=== PATIENT | male | born 1950 | race Caucasian/White ===

== ENCOUNTER 2024-01-31 16:58 | Inpatient (IN) | payer BC, MEDICARE ==
[2024-01-31 17:48] LABS: BASOPHILS ABSOLUTE AUTO 0.03 K/uL (0.00-0.10); BASOPHILS PERCENT AUTO 0.3 % (0.1-1.3); EOSINOPHILS ABSOLUTE AUTO 0.07 K/uL (0.00-0.40); EOSINOPHILS PERCENT AUTO 0.7 % (0.0-5.4); HEMATOCRIT 50.7 % (38.4-49.7); HEMOGLOBIN 17.8 g/dL (12.9-16.9); IMMATURE GRAN ABSOLUTE AUTO 0.05 K/uL (0.00-0.23); IMMATURE GRAN PERCENT AUTO 0.5 % (0.0-0.7); LYMPHOCYTES ABSOLUTE AUTO 1.05 K/uL (0.8-3.3); MEAN CORPUSCULAR HEMOGLOBIN 34.6 pg (31.6-35.5); MEAN CORPUSCULAR HGB CONC 35.1 g/dL (31.6-35.5); MEAN CORPUSCULAR VOLUME 98.4 fL (81.4-99.0); MONOCYTES ABSOLUTE AUTO 1.13 K/uL (0.20-0.90); MONOCYTES PERCENT AUTO 11.8 % (3.3-12.6); NEUTROPHILS ABSOLUTE AUTO 7.25 K/uL (1.0-7.6); NEUTROPHILS PERCENT AUTO 75.7 % (40.0-78.1); PLATELET COUNT,PLT 151 K/uL (130-375); RED BLOOD CELL COUNT 5.15 M/uL (4.14-5.76); WHITE BLOOD CELL COUNT,WBC 9.6 K/uL (3.2-11.0)
[2024-01-31 18:08] LABS: A/G RATIO 0.9 (1.2-2.2); ALANINE AMINOTRANSFERASE,ALT 12 U/L (12-78); ALBUMIN 3.6 g/dL (3.4-5.0); ALKALINE PHOSPHATASE 79 U/L (46-116); ASPARTATE AMNIOTRANSFERASE,AST 20 U/L (15-37); BILIRUBIN TOTAL 1.3 mg/dL (0.2-1.0); BLOOD UREA NITROGEN,BUN 14 mg/dL (7-18); CALCIUM 9.4 mg/dL (8.5-10.1); CARBON DIOXIDE,CO2 31 mmol/L (21-32); CHLORIDE,CL 99 mmol/L (100-108); CREATININE 0.8 mg/dL (0.8-1.3); EST CRCL DRUG DOSING (CG) 82.38 mL/min; ESTIMATED GFR 92 mL/min (>60); GLUCOSE RANDOM 132 mg/dL (74-106); POTASSIUM,K 4.4 mmol/L (3.6-5.2); PROTEIN TOTAL,TP 7.5 g/dL (6.4-8.2); SODIUM,NA 137 mmol/L (140-148)
[2024-01-31 18:10] LABS: ANION GAP 11.4 mmol/L (5.0-14.0)
[2024-01-31 18:13] LABS: INR 1.1; PROTHROMBIN TIME 10.9 sec (9.2-10.6); PTT,PARTIAL THROMBOPLSTIN TIME 26.5 sec (21.8-27.3)
[2024-01-31] MEDS: Digoxin 125 MCG Tab PO ONE (18:36)
[2024-01-31] MEDS: HYDROmorphone 1 MG/ML Syringe IVPUSH PRN ×2 (18:36→21:10)
[2024-01-31 18:38] LABS: CORONAVIRUS COVID-19 NAA NEGATIVE (NEGATIVE); INFLUENZA A NAA NEGATIVE (NEGATIVE); INFLUENZA B NAA NEGATIVE (NEGATIVE); RESPIRATORY SYNCYTIAL VIR NAA NEGATIVE (NEGATIVE)
[2024-01-31] MEDS: Heparin Sodium 5,000 Units/ML Vial IVPUSH ONE (18:58)
[2024-01-31] MEDS: Heparin Sodium/D5W 25,000 UNITS/500 ML BAG IV SCH (19:03)
[2024-01-31] MEDS ORDERED: Levalbuterol HCl 1.25 MG/3 ML Neb NEB PRN (19:22)
[2024-01-31] MEDS: Sodium Chloride 0.9% 500 ML IV SCH (19:41)
[2024-01-31] MEDS ORDERED: Sodium Chloride 0.9% 100 ML IV SCH (19:53)
[2024-01-31] MEDS ORDERED: Iopamidol 755 Mg/ML 100 ML Bottle IV ONE (19:53)
[2024-01-31 21:50] LABS: APPEARANCE,URINE CLEAR (CLEAR); BILIRUBIN,URINE NEGATIVE (NEGATIVE); COLOR,URINE YELLOW (YELLOW); GLUCOSE,URINE NEGATIVE (NEGATIVE); KETONES,URINE NEGATIVE (NEGATIVE); LEUKOCYTE ESTERASE,URINE NEGATIVE (NEGATIVE); NITRITE,URINE NEGATIVE (NEGATIVE); OCCULT BLOOD,URINE NEGATIVE (NEGATIVE); PROTEIN,URINE NEGATIVE (NEGATIVE)
[2024-01-31 21:52] LABS: AMORPHOUS SEDIMENT,URINE NOT SEEN; BACTERIA,URINE RARE; EPITHELIAL CELLS,URINE RARE; MUCUS,URINE RARE; RBC,URINE 0-5 (0-5); WBC,URINE 0-5 (0-5)
[2024-01-31] MEDS: Sodium Chloride 0.9% 1,000 ML IV SCH (22:34)
[2024-02-01 02:08] LABS: INR 1.1
[2024-02-01 02:30] LABS: PTT,PARTIAL THROMBOPLSTIN TIME 102.2 sec (21.8-27.3)
[2024-02-01] MEDS: Iopamidol 755 Mg/ML 100 ML Bottle IV SCH (08:50)
[2024-02-01] MEDS: Sodium Chloride 0.9% 100 ML IV SCH (08:50)
[2024-02-01] MEDS: HYDROmorphone 1 MG/ML Syringe IVPUSH PRN (09:24)
[2024-02-01] MEDS: Digoxin 125 MCG Tab PO SCH (12:25)
[2024-02-01] MEDS: Apixaban 5 MG Tab PO SCH (17:22)
[2024-02-01] MEDS: Sodium Chloride 0.9% 10 ML Syringe IVPUSH SCH (21:16)
== END 2024-02-02 09:47 | disposition home or self-care (01) | DRG 176 ==
LOC: JP.ICU 16:58
PROVIDERS: ADMIT Internal Medicine; ATTEND Internal Medicine
DX: I26.99 Other pulmonary embolism without acute cor pulmonale (principal); I10 Essential (primary) hypertension; G89.4 Chronic pain syndrome; I48.91 Unspecified atrial fibrillation; M54.50 Low back pain, unspecified; R09.02 Hypoxemia; R79.89 Other specified abnormal findings of blood chemistry; Z79.01 Long term (current) use of anticoagulants
CPT/HCPCS: 0241U; 36415; 71275; 76705; 80053; 81001; 82150; 83690; 84484; 85025; 85610; 85730; 93970; A9270-GY; J1170; J1644; J3490; J7030; Q9967

== ENCOUNTER 2025-02-04 01:55 | Inpatient (IN) | payer MEDICARE ==
[2025-02-04 02:16] LABS: BASOPHILS ABSOLUTE AUTO 0.07 K/uL (0.00-0.10); BASOPHILS PERCENT AUTO 0.6 % (0.1-1.3); EOSINOPHILS ABSOLUTE AUTO 0.04 K/uL (0.00-0.40); EOSINOPHILS PERCENT AUTO 0.4 % (0.0-5.4); IMMATURE GRAN ABSOLUTE AUTO 0.05 K/uL (0.00-0.23); IMMATURE GRAN PERCENT AUTO 0.5 % (0.0-0.7); LYMPHOCYTES ABSOLUTE AUTO 1.62 K/uL (0.8-3.3); LYMPHOCYTES PERCENT AUTO 14.8 % (11.4-47.7); MONOCYTES ABSOLUTE AUTO 1.49 K/uL (0.20-0.90); MONOCYTES PERCENT AUTO 13.6 % (3.3-12.6); NEUTROPHILS ABSOLUTE AUTO 7.69 K/uL (1.0-7.6); NEUTROPHILS PERCENT AUTO 70.1 % (40.0-78.1); PLATELET COUNT,PLT 232 K/uL (130-375); RED BLOOD CELL COUNT 5.82 M/uL (4.14-5.76); WHITE BLOOD CELL COUNT,WBC 11.0 K/uL (3.2-11.0)
[2025-02-04] MEDS: Nitroglycerin 0.4 MG Tab.SL SL PRN (02:20)
[2025-02-04] MEDS: Diltiazem 25 MG/5 ML SDV IVPUSH ONE (02:20)
[2025-02-04] MEDS: fentaNYL 100 MCG/2 ML SDV IVPUSH ONE (02:23)
[2025-02-04] MEDS: Sodium Chloride 0.9% 10 ML Syringe FLUSH PRN (02:24)
[2025-02-04 02:29] LABS: A/G RATIO 0.8 (1.2-2.2); ALANINE AMINOTRANSFERASE,ALT 20 U/L (12-78); ASPARTATE AMNIOTRANSFERASE,AST 31 U/L (15-37); BILIRUBIN TOTAL 1.1 mg/dL (0.2-1.0); BLOOD UREA NITROGEN,BUN 12 mg/dL (7-18); CARBON DIOXIDE,CO2 33 mmol/L (21-32); CHLORIDE,CL 95 mmol/L (100-108); CREATININE 0.7 mg/dL (0.8-1.3); EST CRCL DRUG DOSING (CG) 92.70 mL/min; ESTIMATED GFR 95 mL/min (>60); GLUCOSE RANDOM 137 mg/dL (74-106); POTASSIUM,K 4.8 mmol/L (3.6-5.2); PROTEIN TOTAL,TP 8.8 g/dL (6.4-8.2); SODIUM,NA 137 mmol/L (140-148)
[2025-02-04 02:30] LABS: TROPONIN I HIGH SENSITIVITY 179.2 pg/mL (<=60.3)
[2025-02-04] MEDS: Furosemide 40 MG/4 ML VIAL IVPUSH ONE (04:10)
[2025-02-04] MEDS: Diltiazem 100 MG in Sodium Chloride 0.9% 100 ML IV SCH (04:10)
[2025-02-04 12:51] LABS: BASOPHILS ABSOLUTE AUTO 0.03 K/uL (0.00-0.10); BASOPHILS PERCENT AUTO 0.3 % (0.1-1.3); EOSINOPHILS ABSOLUTE AUTO 0.05 K/uL (0.00-0.40); EOSINOPHILS PERCENT AUTO 0.6 % (0.0-5.4); IMMATURE GRAN ABSOLUTE AUTO 0.04 K/uL (0.00-0.23); IMMATURE GRAN PERCENT AUTO 0.5 % (0.0-0.7); LYMPHOCYTES ABSOLUTE AUTO 0.97 K/uL (0.8-3.3); LYMPHOCYTES PERCENT AUTO 11.1 % (11.4-47.7); MONOCYTES ABSOLUTE AUTO 0.90 K/uL (0.20-0.90); MONOCYTES PERCENT AUTO 10.3 % (3.3-12.6); NEUTROPHILS ABSOLUTE AUTO 6.78 K/uL (1.0-7.6); NEUTROPHILS PERCENT AUTO 77.2 % (40.0-78.1); PLATELET COUNT,PLT 206 K/uL (130-375); RED BLOOD CELL COUNT 5.06 M/uL (4.14-5.76); WHITE BLOOD CELL COUNT,WBC 8.8 K/uL (3.2-11.0)
[2025-02-04] MEDS: Furosemide 20 MG/2 ML VIAL IVPUSH ONE (13:14)
[2025-02-04] MEDS: fentaNYL 50 MCG/ML SDV IVPUSH PRN (13:36)
[2025-02-04] MEDS: Budesonide 0.5 MG/2 ML Neb Susp NEB SCH (14:02)
[2025-02-04] MEDS ORDERED: Dental Adhesive 1 Tube DENT ONE (21:05)
[2025-02-05 05:32] LABS: BASOPHILS ABSOLUTE AUTO 0.05 K/uL (0.00-0.10); BASOPHILS PERCENT AUTO 0.6 % (0.1-1.3); EOSINOPHILS ABSOLUTE AUTO 0.06 K/uL (0.00-0.40); EOSINOPHILS PERCENT AUTO 0.7 % (0.0-5.4); IMMATURE GRAN PERCENT AUTO 0.2 % (0.0-0.7); LYMPHOCYTES ABSOLUTE AUTO 1.12 K/uL (0.8-3.3); LYMPHOCYTES PERCENT AUTO 14.0 % (11.4-47.7); MONOCYTES ABSOLUTE AUTO 1.05 K/uL (0.20-0.90); MONOCYTES PERCENT AUTO 13.1 % (3.3-12.6); NEUTROPHILS ABSOLUTE AUTO 5.71 K/uL (1.0-7.6); NEUTROPHILS PERCENT AUTO 71.4 % (40.0-78.1); PLATELET COUNT,PLT 196 K/uL (130-375); RED BLOOD CELL COUNT 4.69 M/uL (4.14-5.76); WHITE BLOOD CELL COUNT,WBC 8.0 K/uL (3.2-11.0)
[2025-02-05 05:37] LABS: IMMATURE GRAN ABSOLUTE AUTO 0.02 K/uL (0.00-0.23)
[2025-02-05 05:52] LABS: A/G RATIO 0.8 (1.2-2.2); ALANINE AMINOTRANSFERASE,ALT 14 U/L (12-78); ASPARTATE AMNIOTRANSFERASE,AST 20 U/L (15-37); BILIRUBIN TOTAL 0.7 mg/dL (0.2-1.0); BLOOD UREA NITROGEN,BUN 8 mg/dL (7-18); CARBON DIOXIDE,CO2 42 mmol/L (21-32); CHLORIDE,CL 99 mmol/L (100-108); CREATININE 0.5 mg/dL (0.8-1.3); EST CRCL DRUG DOSING (CG) 129.78 mL/min; ESTIMATED GFR 106 mL/min (>60); GLUCOSE RANDOM 147 mg/dL (74-106); POTASSIUM,K 3.9 mmol/L (3.6-5.2); PROTEIN TOTAL,TP 6.4 g/dL (6.4-8.2); SODIUM,NA 142 mmol/L (140-148)
[2025-02-05] MEDS: Acetaminophen/oxyCODONE 325-10 MG Tab PO PRN (10:48)
[2025-02-05] MEDS: fentaNYL 50 MCG/ML SDV IVPUSH PRN (12:16)
[2025-02-05] MEDS: Sodium Chloride 0.9% 10 ML Syringe FLUSH PRN (13:05)
[2025-02-05] MEDS: Iopamidol 755 Mg/ML 100 ML Bottle IV SCH (13:05)
== END 2025-02-06 13:50 | disposition home or self-care (01) | DRG 204 ==
LOC: JP.ED 01:55 → JP.ICU 07:18
PROVIDERS: ADMIT Internal Medicine; ATTEND Internal Medicine
DX: R06.03 Acute respiratory distress (principal); I50.9 Heart failure, unspecified; I48.91 Unspecified atrial fibrillation; F17.200 Nicotine dependence, unspecified, uncomplicated; D75.1 Secondary polycythemia; Z79.01 Long term (current) use of anticoagulants; Z86.718 Personal history of other venous thrombosis and embolism; Z86.711 Personal history of pulmonary embolism; Z98.49 Cataract extraction status, unspecified eye; Z98.1 Arthrodesis status; R09.02 Hypoxemia; R79.89 Other specified abnormal findings of blood chemistry; Z79.899 Other long term (current) drug therapy; Z95.1 Presence of aortocoronary bypass graft
CPT/HCPCS: 36415; 71045 ×2; 80053; 82550; 83605; 83880; 84484 ×2; 85025; 85379; 93005; 94640; 96365; 96366; 96374; 96375; 96376; 99285; A9270 ×3; J1938; J3010; J3490 ×2; 71275; 87070; 87205; 93010; 93971-LT; 94667; 99195; Q9967